=== PATIENT | female | born 1990 | race Caucasian/White ===

== ENCOUNTER 2019-08-22 07:44 | Observation (INO) | payer OTHER ==
[2019-08-22] MEDS ORDERED: Acetaminophen 500 MG Tab PO ONE (08:16)
[2019-08-22] MEDS ORDERED: LORazepam 2 MG/ML SDV IVPUSH ONE (08:32)
--- NOTE | 2019-08-22 08:44 | EDM.PDOC ---
ED HPI GENERAL MEDICAL PROBLEM - General Chief Complaint: Neurological Problem Stated Complaint: SEIZURE Time Seen by Provider: 08/22/19 08:13 Source of Information: Reports: Patient - History of Present Illness INITIAL COMMENTS - FREE TEXT/NARRATIVE: Patient states that she was told she had 2 seizures this morning shortly before her shift at work ended. She does not recall them and is not sure of the duration of either seizure. She remembers being at work and then remembers waking up in the ambulance. She says that she was diagnosed with seizures 2 years ago, and that she stopped taking her medicines a year ago because of the cost. She says she is supposed to take Keppra but does not know the dose. She reports a 5 out of 10 bifrontal headache, which she says she frequently gets after she has a seizure. She denies feeling lightheaded or dizzy. She denies incontinence but says she bit her tongue. She says her sister told her that she also had a seizure for about 2 minutes on (3 days ago). - Related Data Allergies Allergy/AdvReac Type Severity Reaction Status Date / Time Penicillins Allergy Rash Verified 08/22/19 13:08 Home Meds: Home Meds . [No Known Home Meds] 08/22/19 [History] ED ROS GENERAL - Review of Systems Review Of Systems: See Below Constitutional: Denies: Fever, Fatigue HEENT: Denies: Eye Pain Respiratory: Denies: Shortness of Breath GI/Abdominal: Denies: Nausea, Vomiting Neurological: Reports: Dizziness, Headache, Seizure. Denies: Numbness, Syncope , Tingling - Physical Exam Exam: See Below Text/Narrative:: General: alert, well appearing, no acute distress HEENT: Atraumatic, normocephalic, pupils reactive, negative for conjunctival pallor or scleral icterus, mucous membranes moist, throat clear, handling oral secretions well. Patient has a few shallow, 1 to 2 mm diameter abrasions on the left lateral border of her tongue which are consistent with having bitten her tongue; none are actively bleeding. Neck: supple, nontender, trachea midline. Lungs: Clear to auscultation, breath sounds equal bilaterally, chest nontender. Heart: S1S2, regular, negative for clicks, rubs, or JVD. Abdomen: Soft, nondistended, nontender. Negative for masses or hepatosplenomegaly. Skin: warm, dry, good turgor. Musculoskeletal: soft compartments. Extremities: Atraumatic, negative for cords or calf pain. Neurovascular unremarkable. Neuro: Awake, alert, oriented. Cranial nerves II through XII unremarkable. Intact finger to target bilaterally, but I noticed patient has a fine tremor in each upper extremity which neither improves nor worsens as she approaches to target. 2+ DTRs. Sensation intact. Good power in each extremity. Course - Vital Signs Text/Narrative:: Cbc: mild anemia . otherwise unremarkable Cmp: hypokalemia K=2.6 Etoh: Coags: nl Mg: Ucg: neg UA: neg MDM Unclear whether the abnl motor activity reported today was a true sz. I do not find an EEG report which supports a diagnosis of seizure. However, pt's potassium level is low. Pt to be admitted for repletion of potassium. 10:20am Hospitalist paged. Pt sleeping comfortable. No sz like activity. 10:48am Requested page of hospitalist. 10:52am d/w Dr. Blankenship, hospitalist. Will admit. Last Recorded V/S: Last Vital Signs Temp 97.5 F 08/22/19 16:45 Pulse 69 08/22/19 16:45 Resp 18 08/22/19 16:45 BP 105/52 L 08/22/19 16:45 Pulse Ox 95 08/22/19 16:45 - Orders/Labs/Meds Orders: Medication Orders Acetaminophen (Tylenol) 650 mg PO Q4H PRN PRN Reason: Pain (Mild 1-3)/fever Enoxaparin Sodium (Lovenox) 40 mg SUBCUT Q24H ADAM Last Admin: 08/22/19 14:13 Dose: 40 mg Ibuprofen (Motrin) 600 mg PO Q6H PRN PRN Reason: Pain (mild 1-3) Ketorolac Tromethamine (Toradol) 30 mg IV Q6H PRN PRN Reason: Pain (moderate 4-6) Last Admin: 08/22/19 13:52 Dose: 30 mg Levetiracetam (Keppra) 500 mg PO BID [facility] Lorazepam (Ativan) 1 mg IVPUSH Q5M PRN PRN Reason: Seizures Lorazepam (Ativan) 0 mg IVPUSH Q4H PRN; Protocol PRN Reason: Withdrawal Symptoms Multivit/Ca Carb/B Cmplx/FA/Prenat (Renal Caps Softgel) 1 cap PO DAILY ADAM Last Admin: 08/22/19 14:07 Dose: 1 cap Ondansetron HCl (Zofran Odt) 4 mg PO Q4H PRN PRN Reason: nausea, able to take PO Ondansetron HCl (Zofran) 4 mg IVPUSH Q4H PRN PRN Reason: Nausea Polyethylene Glycol (Miralax) 17 gm PO DAILY PRN PRN Reason: Constipation Potassium Chloride (Klor-Con M20) 40 meq PO ONETIME ONE Stop: 08/22/19 20:01 Labs: Laboratory Tests 08/22/19 08/22/19 08/22/19 Range/Units 07:45 07:45 07:45 WBC 8.72 (4.0-11.0) K/uL RBC 3.48 L (4.30-5.90) M/uL Hgb 11.9 L (12.0-16.0) g/dL Hct 35.1 L (36.0-46.0) % MCV 100.9 H (80.0-98.0) fL MCH 34.2 H (27.0-32.0) pg MCHC 33.9 (31.0-37.0) g/dL RDW Std Deviation 52.2 (28.0-62.0) fl RDW Coeff of Neo 14 (11.0-15.0) % Plt Count 256 (150-400) K/uL MPV 10.80 (7.40-12.00) fL Neut % (Auto) 50.6 (48.0-80.0) % Lymph % (Auto) 40.7 H (16.0-40.0) % [place] % (Auto) 7.2 (0.0-15.0) % Eos % (Auto) 1.3 (0.0-7.0) % Baso % (Auto) 0.2 (0.0-1.5) % Neut # (Auto) 4.4 (1.4-5.7) K/uL Lymph # (Auto) 3.6 H (0.6-2.4) K/uL [place] # (Auto) 0.6 (0.0-0.8) K/uL Eos # (Auto) 0.1 (0.0-0.7) K/uL Baso # (Auto) 0.0 (0.0-0.1) K/uL Nucleated RBC % 0.0 /100WBC Nucleated RBCs # 0 K/uL INR 0.99 Sodium 142 (136-145) mmol/L Potassium 2.6 L (3.5-5.1) mmol/L Chloride 103 (98-107) mmol/L Carbon Dioxide 25.8 (21.0-32.0) mmol/L BUN 6 L (7.0-18.0) mg/dL Creatinine 0.7 (0.6-1.0) mg/dL Est Cr Clr Drug Dosing TNP Estimated GFR (MDRD) > 60.0 ml/min Glucose 146 H (74-106) mg/dL Calcium 8.6 (8.5-10.1) mg/dL Magnesium 1.4 L (1.8-2.4) mg/dL Total Bilirubin 1.0 (0.2-1.0) mg/dL AST 80 H (15-37) IU/L ALT 107 H (14-63) IU/L Alkaline Phosphatase 90 (46-116) U/L Total Protein 6.4 (6.4-8.2) g/dL Albumin 3.3 L (3.4-5.0) g/dL Globulin 3.1 (2.6-4.0) g/dL Albumin/Globulin Ratio 1.1 (0.9-1.6) Prolactin ng/mL Urine Color Urine Appearance Urine pH (5.0-8.0) Ur Specific [place] (1.001-1.035) Urine Protein (NEGATIVE) mg/dL Urine Glucose (UA) (NEGATIVE) mg/dL Urine Ketones (NEGATIVE) mg/dL Urine Occult Blood (NEGATIVE) Urine Nitrite (NEGATIVE) Urine Bilirubin (NEGATIVE) Urine Urobilinogen (<2.0) EU/dL Ur Leukocyte Esterase (NEGATIVE) Urine HCG, Qual (NEGATIVE) Urine Opiates Screen (NEGATIVE) Ur Oxycodone Screen (NEGATIVE) Urine Methadone Screen (NEGATIVE) Ur Barbiturates Screen (NEGATIVE) Ur Phencyclidine Scrn (NEGATIVE) Ur Amphetamine Screen (NEGATIVE) U Methamphetamines Scrn (NEGATIVE) U Benzodiazepines Scrn (NEGATIVE) U Cocaine Metab Screen (NEGATIVE) U Marijuana (THC) Screen (NEGATIVE) Ethyl Alcohol < 3.0 mg/dL 08/22/19 08/22/19 08/22/19 Range/Units 07:45 08:42 08:42 WBC (4.0-11.0) K/uL RBC (4.30-5.90) M/uL Hgb (12.0-16.0) g/dL Hct (36.0-46.0) % MCV (80.0-98.0) fL MCH (27.0-32.0) pg MCHC (31.0-37.0) g/dL RDW Std Deviation (28.0-62.0) fl RDW Coeff of Neo (11.0-15.0) % Plt Count (150-400) K/uL MPV (7.40-12.00) fL Neut % (Auto) (48.0-80.0) % Lymph % (Auto) (16.0-40.0) % [place] % (Auto) (0.0-15.0) % Eos % (Auto) (0.0-7.0) % Baso % (Auto) (0.0-1.5) % Neut # (Auto) (1.4-5.7) K/uL Lymph # (Auto) (0.6-2.4) K/uL [place] # (Auto) (0.0-0.8) K/uL Eos # (Auto) (0.0-0.7) K/uL Baso # (Auto) (0.0-0.1) K/uL Nucleated RBC % /100WBC Nucleated RBCs # K/uL INR Sodium (136-145) mmol/L Potassium (3.5-5.1) mmol/L Chloride (98-107) mmol/L Carbon Dioxide (21.0-32.0) mmol/L BUN (7.0-18.0) mg/dL Creatinine (0.6-1.0) mg/dL Est Cr Clr Drug Dosing Estimated GFR (MDRD) ml/min Glucose (74-106) mg/dL Calcium (8.5-10.1) mg/dL Magnesium (1.8-2.4) mg/dL Total Bilirubin (0.2-1.0) mg/dL AST (15-37) IU/L ALT (14-63) IU/L Alkaline Phosphatase (46-116) U/L Total Protein (6.4-8.2) g/dL Albumin (3.4-5.0) g/dL Globulin (2.6-4.0) g/dL Albumin/Globulin Ratio (0.9-1.6) Prolactin 52.1 ng/mL Urine Color YELLOW Urine Appearance CLEAR Urine pH 7.0 (5.0-8.0) Ur Specific [place] <= 1.005 (1.001-1.035) Urine Protein NEGATIVE (NEGATIVE) mg/dL Urine Glucose (UA) NEGATIVE (NEGATIVE) mg/dL Urine Ketones NEGATIVE (NEGATIVE) mg/dL Urine Occult Blood NEGATIVE (NEGATIVE) Urine Nitrite NEGATIVE (NEGATIVE) Urine Bilirubin NEGATIVE (NEGATIVE) Urine Urobilinogen 0.2 (<2.0) EU/dL Ur Leukocyte Esterase NEGATIVE (NEGATIVE) Urine HCG, Qual NEGATIVE (NEGATIVE) Urine Opiates Screen (NEGATIVE) Ur Oxycodone Screen (NEGATIVE) Urine Methadone Screen (NEGATIVE) Ur Barbiturates Screen (NEGATIVE) Ur Phencyclidine Scrn (NEGATIVE) Ur Amphetamine Screen (NEGATIVE) U Methamphetamines Scrn (NEGATIVE) U Benzodiazepines Scrn (NEGATIVE) U Cocaine Metab Screen (NEGATIVE) U Marijuana (THC) Screen (NEGATIVE) Ethyl Alcohol mg/dL 08/22/19 Range/Units 08:42 WBC (4.0-11.0) K/uL RBC (4.30-5.90) M/uL Hgb (12.0-16.0) g/dL Hct (36.0-46.0) % MCV (80.0-98.0) fL MCH (27.0-32.0) pg MCHC (31.0-37.0) g/dL RDW Std Deviation (28.0-62.0) fl RDW Coeff of Neo (11.0-15.0) % Plt Count (150-400) K/uL MPV (7.40-12.00) fL Neut % (Auto) (48.0-80.0) % Lymph % (Auto) (16.0-40.0) % [place] % (Auto) (0.0-15.0) % Eos % (Auto) (0.0-7.0) % Baso % (Auto) (0.0-1.5) % Neut # (Auto) (1.4-5.7) K/uL Lymph # (Auto) (0.6-2.4) K/uL [place] # (Auto) (0.0-0.8) K/uL Eos # (Auto) (0.0-0.7) K/uL Baso # (Auto) (0.0-0.1) K/uL Nucleated RBC % /100WBC Nucleated RBCs # K/uL INR Sodium (136-145) mmol/L Potassium (3.5-5.1) mmol/L Chloride (98-107) mmol/L Carbon Dioxide (21.0-32.0) mmol/L BUN (7.0-18.0) mg/dL Creatinine (0.6-1.0) mg/dL Est Cr Clr Drug Dosing Estimated GFR (MDRD) ml/min Glucose (74-106) mg/dL Calcium (8.5-10.1) mg/dL Magnesium (1.8-2.4) mg/dL Total Bilirubin (0.2-1.0) mg/dL AST (15-37) IU/L ALT (14-63) IU/L Alkaline Phosphatase (46-116) U/L Total Protein (6.4-8.2) g/dL Albumin (3.4-5.0) g/dL Globulin (2.6-4.0) g/dL Albumin/Globulin Ratio (0.9-1.6) Prolactin ng/mL Urine Color Urine Appearance Urine pH (5.0-8.0) Ur Specific [place] (1.001-1.035) Urine Protein (NEGATIVE) mg/dL Urine Glucose (UA) (NEGATIVE) mg/dL Urine Ketones (NEGATIVE) mg/dL Urine Occult Blood (NEGATIVE) Urine Nitrite (NEGATIVE) Urine Bilirubin (NEGATIVE) Urine Urobilinogen (<2.0) EU/dL Ur Leukocyte Esterase (NEGATIVE) Urine HCG, Qual (NEGATIVE) Urine Opiates Screen NEGATIVE (NEGATIVE) Ur Oxycodone Screen NEGATIVE (NEGATIVE) Urine Methadone Screen NEGATIVE (NEGATIVE) Ur Barbiturates Screen NEGATIVE (NEGATIVE) Ur Phencyclidine Scrn NEGATIVE (NEGATIVE) Ur Amphetamine Screen NEGATIVE (NEGATIVE) U Methamphetamines Scrn NEGATIVE (NEGATIVE) U Benzodiazepines Scrn NEGATIVE (NEGATIVE) U Cocaine Metab Screen NEGATIVE (NEGATIVE) U Marijuana (THC) Screen POSITIVE (NEGATIVE) Ethyl Alcohol mg/dL Meds: Medications Generic Name Dose Route Start Last Admin Trade Name Freq PRN Reason Stop Dose Admin Acetaminophen 650 mg 08/22/19 11:28 Tylenol PO Q4H PRN Pain (Mild 1-3)/fever Enoxaparin Sodium 40 mg 08/22/19 11:30 08/22/19 14:13 Lovenox SUBCUT 40 mg Q24H ADAM Administration Ibuprofen 600 mg 08/22/19 11:28 Motrin PO Q6H PRN Pain (mild 1-3) Ketorolac Tromethamine 30 mg 08/22/19 11:28 08/22/19 13:52 Toradol IV 30 mg Q6H PRN Administration Pain (moderate 4-6) Levetiracetam 500 mg 08/23/19 09:00 Keppra PO BID ADAM Lorazepam 1 mg 08/22/19 11:32 Ativan IVPUSH Q5M PRN Seizures Lorazepam 0 mg 08/22/19 11:36 Ativan IVPUSH Q4H PRN Withdrawal Symptoms Protocol Multivit/Ca Carb/B Cmplx/FA/Prenat 1 cap 08/22/19 11:45 08/22/19 14:07 Renal Caps Softgel PO 1 cap DAILY ADAM Administration Ondansetron HCl 4 mg 08/22/19 11:28 Zofran Odt PO Q4H PRN nausea, able to take PO Ondansetron HCl 4 mg 08/22/19 11:28 Zofran IVPUSH Q4H PRN Nausea Polyethylene Glycol 17 gm 08/22/19 11:28 Miralax PO DAILY PRN Constipation Potassium Chloride 40 meq 08/22/19 20:00 Klor-Con M20 PO 08/22/19 20:01 ONETIME ONE Discontinued Medications Generic Name Dose Route Start Last Admin Trade Name Freq PRN Reason Stop Dose Admin Acetaminophen 1,000 mg 08/22/19 08:16 08/22/19 08:24 Tylenol Extra Strength PO 08/22/19 08:17 1,000 mg ONETIME ONE Administration Potassium Chloride 20 meq/ 50 mls @ 25 mls/hr 08/22/19 10:21 08/22/19 11:48 Premix IV 08/22/19 12:20 25 mls/hr ONETIME ONE Administration Levetiracetam 500 mg/ Dextrose 105 mls @ 420 mls/hr 08/22/19 11:45 08/22/19 11:48 /Water IV 08/22/19 11:59 420 mls/hr ONETIME ONE Administration Magnesium Sulfate 2 gm/ Premix 50 mls @ 50 mls/hr 08/22/19 13:29 08/22/19 14: 08 IV 08/22/19 14:28 50 mls/hr ONETIME ONE Administration Lorazepam 1 mg 08/22/19 08:32 08/22/19 08:44 Ativan IVPUSH 08/22/19 08:33 1 mg ONETIME ONE Administration Potassium Chloride 20 meq 08/22/19 13:30 08/22/19 14:07 Klor-Con M20 PO 08/22/19 13:31 20 meq ONETIME ONE Administration Potassium Chloride 40 meq 08/22/19 17:00 Klor-Con M20 PO 08/22/19 17:01 ONETIME ONE Potassium Chloride 20 meq 08/22/19 14:30 08/22/19 14:47 Klor-Con M20 PO 08/22/19 14:31 20 meq ONETIME ONE Administration Departure - Departure Time of Disposition: 10:52 Disposition: Refer to Observation Clinical Impression: Hypokalemia - Discharge Information Sepsis Event Note - Evaluation Sepsis Screening Result: No Definite Risk - Focused Exam Vital Signs: Vital Signs Temp Pulse Resp BP Pulse Ox 08/22/19 10:42 95 111/57 L 95 08/22/19 09:30 90 116/62 08/22/19 07:46 97.3 F 102 H 22 H 130/83 98 Date Exam was Performed: 08/22/19 Time Exam was Performed: 18:36
[2019-08-22 08:58] LABS: BLOOD UREA NITROGEN,BUN 6 mg/dL (7.0-18.0); CARBON DIOXIDE,CO2 25.8 mmol/L (21.0-32.0); CHLORIDE,CL 103 mmol/L (98-107); GLUCOSE RANDOM 146 mg/dL (74-106); POTASSIUM,K 2.6 mmol/L (3.5-5.1); SODIUM,NA 142 mmol/L (136-145)
[2019-08-22] MEDS ORDERED: Potassium Chloride 10% 20 MEQ/15 ML Soln 15 ML UD Cup PO ONE (10:20)
[2019-08-22] MEDS ORDERED: Potassium Chloride Riders 20 MEQ in Premix Bag 1 BAG IV ONE (10:21)
[2019-08-22] MEDS ORDERED: Polyethylene Glycol 3350 Powder 17 GM Packet PO PRN (11:28)
[2019-08-22] MEDS ORDERED: Acetaminophen 325 MG Tab PO PRN (11:28)
[2019-08-22] MEDS ORDERED: Ondansetron 4 MG/2 ML SDV IVPUSH PRN (11:28)
[2019-08-22] MEDS ORDERED: Ondansetron 4 MG Tab.DIS PO PRN (11:28)
[2019-08-22] MEDS ORDERED: Ibuprofen 600 MG Tab PO PRN (11:28)
[2019-08-22] MEDS ORDERED: Enoxaparin 40 MG/0.4 ML Syringe SUBCUT SCH (11:30)
[2019-08-22] MEDS ORDERED: LORazepam 2 MG/ML SDV IVPUSH PRN ×2 (11:32→11:36)
--- NOTE | 2019-08-22 11:46 | PCM.HP.2 ---
H&P History of Present Illness - General Date of Service: 08/22/19 Admit Problem/Dx: Admission Diagnosis/Problem Admission Diagnosis/Problem Hypokalemia - History of Present Illness Initial Comments - Free Text/Narative: 29 y/o female who presented to the ER after having a seizure. Patient states she does not recall from time of seizure. States she woke up in the ambulance. Denies any headache, chest pain, dyspnea, abdominal pain. She has a history of seizures for the past 2 years. However, she has not bee using medication for it. Patient had another seizure few days ago on . Patient denies alcohol use but mom thinks she is an alcoholic. In the ER, she was found to be hypokalemic. She was admitted for hypokalemia. - Related Data Allergies/Adverse Reactions: Allergies Allergy/AdvReac Type Severity Reaction Status Date / Time Penicillins Allergy Rash Verified 08/22/19 13:08 Home Medications: Home Meds . [No Known Home Meds] 08/22/19 [History] Past Medical History Neurological History: Reports: Seizure - Infectious Disease History Infectious Disease History: Reports: MRSA Social & Family History - Tobacco Use Smoking Status *Q: Current Every Day Smoker Years of Tobacco use: 16 Packs/Tins Daily: 1 - Recreational Drug Use Recreational Drug Use: No H&P Review of Systems - Review of Systems: Review Of Systems: Comprehensive ROS is negative, except as noted in HPI. Exam - Exam Exam: See Below - Vital Signs Vital Signs: Last Vital Signs Temp 36.3 C 08/22/19 07:46 Pulse 95 08/22/19 10:42 Resp 22 H 08/22/19 07:46 BP 111/57 L 08/22/19 10:42 Pulse Ox 95 08/22/19 10:42 Weight: 68.946 kg - Exam General: Alert, Oriented, Cooperative HEENT: Pupils Equal, Pupils Reactive Neck: Supple Lungs: Clear to Auscultation, Normal Respiratory Effort, Wheezing. No: Crackles Cardiovascular: Regular Rate, Regular Rhythm GI/Abdominal Exam: Normal Bowel Sounds, Soft, Non-Tender Extremities: Normal Inspection, No Pedal Edema Skin: Warm, Dry Neurological: Cranial Nerves Intact Neuro Extensive - Mental Status: Alert, Oriented x3 - Patient Data Lab Results Last 24 hrs: Laboratory Results - last 24 hr 02/08/22/19 08/22/19 Range/Units 07:45 07:45 07:45 WBC 8.72 (4.0-11.0) K/uL RBC 3.48 L (4.30-5.90) M/uL Hgb 11.9 L (12.0-16.0) g/dL Hct 35.1 L (36.0-46.0) % MCV 100.9 H (80.0-98.0) fL MCH 34.2 H (27.0-32.0) pg MCHC 33.9 (31.0-37.0) g/dL RDW Std Deviation 52.2 (28.0-62.0) fl RDW Coeff of Neo 14 (11.0-15.0) % Plt Count 256 (150-400) K/uL MPV 10.80 (7.40-12.00) fL Neut % (Auto) 50.6 (48.0-80.0) % Lymph % (Auto) 40.7 H (16.0-40.0) % [place] % (Auto) 7.2 (0.0-15.0) % Eos % (Auto) 1.3 (0.0-7.0) % Baso % (Auto) 0.2 (0.0-1.5) % Neut # (Auto) 4.4 (1.4-5.7) K/uL Lymph # (Auto) 3.6 H (0.6-2.4) K/uL [place] # (Auto) 0.6 (0.0-0.8) K/uL Eos # (Auto) 0.1 (0.0-0.7) K/uL Baso # (Auto) 0.0 (0.0-0.1) K/uL Nucleated RBC % 0.0 /100WBC Nucleated RBCs # 0 K/uL INR 0.99 Sodium 142 (136-145) mmol/L Potassium 2.6 L (3.5-5.1) mmol/L Chloride 103 (98-107) mmol/L Carbon Dioxide 25.8 (21.0-32.0) mmol/L BUN 6 L (7.0-18.0) mg/dL Creatinine 0.7 (0.6-1.0) mg/dL Est Cr Clr Drug Dosing TNP Estimated GFR (MDRD) > 60.0 ml/min Glucose 146 H (74-106) mg/dL Calcium 8.6 (8.5-10.1) mg/dL Magnesium 1.4 L (1.8-2.4) mg/dL Total Bilirubin 1.0 (0.2-1.0) mg/dL AST 80 H (15-37) IU/L ALT 107 H (14-63) IU/L Alkaline Phosphatase 90 (46-116) U/L Total Protein 6.4 (6.4-8.2) g/dL Albumin 3.3 L (3.4-5.0) g/dL Globulin 3.1 (2.6-4.0) g/dL Albumin/Globulin Ratio 1.1 (0.9-1.6) Urine Color Urine Appearance Urine pH (5.0-8.0) Ur Specific [place] (1.001-1.035) Urine Protein (NEGATIVE) mg/dL Urine Glucose (UA) (NEGATIVE) mg/dL Urine Ketones (NEGATIVE) mg/dL Urine Occult Blood (NEGATIVE) Urine Nitrite (NEGATIVE) Urine Bilirubin (NEGATIVE) Urine Urobilinogen (<2.0) EU/dL Ur Leukocyte Esterase (NEGATIVE) Urine HCG, Qual (NEGATIVE) Ethyl Alcohol < 3.0 mg/dL 08/22/19 08/22/19 Range/Units 08:42 08:42 WBC (4.0-11.0) K/uL RBC (4.30-5.90) M/uL Hgb (12.0-16.0) g/dL Hct (36.0-46.0) % MCV (80.0-98.0) fL MCH (27.0-32.0) pg MCHC (31.0-37.0) g/dL RDW Std Deviation (28.0-62.0) fl RDW Coeff of Neo (11.0-15.0) % Plt Count (150-400) K/uL MPV (7.40-12.00) fL Neut % (Auto) (48.0-80.0) % Lymph % (Auto) (16.0-40.0) % [place] % (Auto) (0.0-15.0) % Eos % (Auto) (0.0-7.0) % Baso % (Auto) (0.0-1.5) % Neut # (Auto) (1.4-5.7) K/uL Lymph # (Auto) (0.6-2.4) K/uL [place] # (Auto) (0.0-0.8) K/uL Eos # (Auto) (0.0-0.7) K/uL Baso # (Auto) (0.0-0.1) K/uL Nucleated RBC % /100WBC Nucleated RBCs # K/uL INR Sodium (136-145) mmol/L Potassium (3.5-5.1) mmol/L Chloride (98-107) mmol/L Carbon Dioxide (21.0-32.0) mmol/L BUN (7.0-18.0) mg/dL Creatinine (0.6-1.0) mg/dL Est Cr Clr Drug Dosing Estimated GFR (MDRD) ml/min Glucose (74-106) mg/dL Calcium (8.5-10.1) mg/dL Magnesium (1.8-2.4) mg/dL Total Bilirubin (0.2-1.0) mg/dL AST (15-37) IU/L ALT (14-63) IU/L Alkaline Phosphatase (46-116) U/L Total Protein (6.4-8.2) g/dL Albumin (3.4-5.0) g/dL Globulin (2.6-4.0) g/dL Albumin/Globulin Ratio (0.9-1.6) Urine Color YELLOW Urine Appearance CLEAR Urine pH 7.0 (5.0-8.0) Ur Specific [place] <= 1.005 (1.001-1.035) Urine Protein NEGATIVE (NEGATIVE) mg/dL Urine Glucose (UA) NEGATIVE (NEGATIVE) mg/dL Urine Ketones NEGATIVE (NEGATIVE) mg/dL Urine Occult Blood NEGATIVE (NEGATIVE) Urine Nitrite NEGATIVE (NEGATIVE) Urine Bilirubin NEGATIVE (NEGATIVE) Urine Urobilinogen 0.2 (<2.0) EU/dL Ur Leukocyte Esterase NEGATIVE (NEGATIVE) Urine HCG, Qual NEGATIVE (NEGATIVE) Ethyl Alcohol mg/dL Result Diagrams: 08/22/19 07:45 08/22/19 07:45 Sepsis Event Note - Evaluation Sepsis Screening Result: No Definite Risk - Focused Exam Vital Signs: Vital Signs Temp Pulse Resp BP Pulse Ox 08/22/19 10:42 95 111/57 L 95 08/22/19 07:46 36.3 C 102 H 22 H 130/83 98 Date Exam was Performed: 08/22/19 Time Exam was Performed: 14:28 Problem List Initiated/Reviewed/Updated: Yes Orders Last 24hrs: Active Orders 24 hr Category Date Time Status Admission Status [Patient Status] [ADT] Stat ADT 08/22/19 10:58 Active CIWAA Assessment [RC] Q6H Care 08/22/19 11:36 Active EKG 12 Lead [EKG Documentation Completion] [RC] STAT Care 08/22/19 10:20 Active Intake and Output [RC] QSHIFT Care 08/22/19 11:28 Active Oxygen Therapy [RC] PRN Care 08/22/19 11:28 Active Telemetry Monitoring [Cardiac Monitoring] [RC] . Care 08/22/19 11:30 Active DIRECTED Up With Assistance [RC] ASDIRECTED Care 08/22/19 11:28 Active VTE/DVT Education [RC] PER UNIT ROUTINE Care 08/22/19 11:28 Active Vital Signs [RC] Q4H Care 08/22/19 11:28 Active Regular Diet [DIET] Diet 08/22/19 Lunch Active CBC WITH AUTO DIFF [HEME] AM Lab 08/23/19 05:11 Ordered CBC WITH AUTO DIFF [HEME] AM Lab 08/24/19 05:11 Ordered COMPREHENSIVE METABOLIC PN,CMP [CHEM] AM Lab 08/23/19 05:11 Ordered COMPREHENSIVE METABOLIC PN,CMP [CHEM] AM Lab 08/24/19 05:11 Ordered DRUG SCREEN, URINE [URCHEM] Routine Lab 08/22/19 08:42 Received MAGNESIUM [CHEM] AM Lab 08/23/19 05:11 Ordered PROLACTIN [CHEM] Routine Lab 08/22/19 11:34 Ordered Acetaminophen [Tylenol] Med 08/22/19 11:28 Active 650 mg PO Q4H PRN Enoxaparin [Lovenox] Med 08/22/19 11:30 Active 40 mg SUBCUT Q24H Folic Acid/Vitamin B Comp W-C [Renal Caps Softgel] Med 08/22/19 11:45 Active 1 cap PO DAILY Ibuprofen [Motrin] Med 08/22/19 11:28 Active 600 mg PO Q6H PRN Ketorolac [Toradol] Med 08/22/19 11:28 Active 30 mg IV Q6H PRN LORazepam [Ativan] Med 08/22/19 11:32 Active 1 mg IVPUSH Q5M PRN LORazepam [Ativan] Med 08/22/19 11:36 Active See Protocol IVPUSH Q4H PRN Ondansetron [Zofran ODT] Med 08/22/19 11:28 Active 4 mg PO Q4H PRN Ondansetron [Zofran] Med 08/22/19 11:28 Active 4 mg IVPUSH Q4H PRN Potassium Chloride Riders [KCL 20 MEQ in Water 50 ML] Med 08/22/19 10:21 Active 20 meq Premix Bag 1 bag IV ONETIME levETIRAcetam [Keppra] Med 08/23/19 09:00 Active 500 mg PO BID levETIRAcetam [Keppra] 500 mg Med 08/22/19 11:45 Active Dextrose 5% in Water 100 ml IV ONETIME polyethylene glycoL 3350 [MiraLAX] Med 08/22/19 11:28 Active 17 gm PO DAILY PRN Seizure Precautions [OM.PC] Stat Oth 08/22/19 11:30 Ordered Resuscitation Status Routine Resus Stat 08/22/19 11:28 Ordered Medication Orders Acetaminophen (Tylenol) 650 mg PO Q4H PRN PRN Reason: Pain (Mild 1-3)/fever Enoxaparin Sodium (Lovenox) 40 mg SUBCUT Q24H ADAM Potassium Chloride 20 meq/ (Premix) 50 mls @ 25 mls/hr IV ONETIME ONE Stop: 08/22/19 12:20 Levetiracetam 500 mg/ Dextrose (/Water) 105 mls @ 420 mls/hr IV ONETIME ONE Stop: 08/22/19 11:59 Ibuprofen (Motrin) 600 mg PO Q6H PRN PRN Reason: Pain (mild 1-3) Ketorolac Tromethamine (Toradol) 30 mg IV Q6H PRN PRN Reason: Pain (moderate 4-6) Levetiracetam (Keppra) 500 mg PO BID ADAM Lorazepam (Ativan) 1 mg IVPUSH Q5M PRN PRN Reason: Seizures Lorazepam (Ativan) 0 mg IVPUSH Q4H PRN; Protocol PRN Reason: Withdrawal Symptoms Multivit/Ca Carb/B Cmplx/FA/Prenat (Renal Caps Softgel) 1 cap PO DAILY ADAM Ondansetron HCl (Zofran Odt) 4 mg PO Q4H PRN PRN Reason: nausea, able to take PO Ondansetron HCl (Zofran) 4 mg IVPUSH Q4H PRN PRN Reason: Nausea Polyethylene Glycol (Miralax) 17 gm PO DAILY PRN PRN Reason: Constipation Assessment/Plan Comment:: A: 1. Epilepsy 2. Hypokalemia 3. Hypomagnesemia P: 1. Will continue with Keppra 500 mg PO BID for now. Will replace hypokalemia with KCl 40 mEq x2 doses. Seizure precautions. CIWA assessment and Ativan PRN for alcohol withdrawal, seizures. Replace hypomagnesemia with MgS 2 g IV once. Recheck tomorrow. dispo: likely dc tomorrow
[2019-08-22] MEDS ORDERED: Magnesium Sulfate/Water 2 GM in Premix Bag 1 BAG IV ONE (13:29)
[2019-08-22] MEDS ORDERED: Potassium Chloride 20 MEQ Tab.ER PO ONE ×4 (13:30→20:00)
[2019-08-22] MEDS: Ketorolac 30 MG/ML SDV IV PRN ×2 (13:52→21:19)
[2019-08-22] MEDS: Folic Acid/Vitamin B Complex With C Cap PO SCH (14:07)
[2019-08-22] MEDS ORDERED: Potassium Chloride 20 MEQ Tab.ER ONE (21:30)
[2019-08-22 21:31] LABS: BLOOD UREA NITROGEN,BUN 4 mg/dL (7.0-18.0); CARBON DIOXIDE,CO2 28.1 mmol/L (21.0-32.0); CHLORIDE,CL 108 mmol/L (98-107); GLUCOSE RANDOM 110 mg/dL (74-106); POTASSIUM,K 3.4 mmol/L (3.5-5.1); SODIUM,NA 145 mmol/L (136-145)
[2019-08-23] MEDS: Ketorolac 30 MG/ML SDV IV PRN ×2 (03:24→10:04)
[2019-08-23 06:29] LABS: HEMOGLOBIN A1C 5.4 % (4.5-6.2)
[2019-08-23 06:41] LABS: BLOOD UREA NITROGEN,BUN 5 mg/dL (7.0-18.0); CHLORIDE,CL 109 mmol/L (98-107); GLUCOSE RANDOM 91 mg/dL (74-106); POTASSIUM,K 3.8 mmol/L (3.5-5.1); SODIUM,NA 144 mmol/L (136-145)
[2019-08-23] MEDS ORDERED: Potassium Chloride 20 MEQ Tab.ER PO ONE (08:29)
[2019-08-23] MEDS: Folic Acid/Vitamin B Complex With C Cap PO SCH (08:56)
[2019-08-23] MEDS ORDERED: levETIRAcetam 500 MG Tab PO SCH (09:00)
--- NOTE | 2019-08-23 11:44 | PCM.DCSUM1 ---
<Ilia Aguila - Last Filed: 08/23/19 14:41> Discharge Summary - Hospital Course Free Text/Narrative:: 29 y/o female with history of epilepsy who presented to the ER after having a seizure at work. Found to be hypokalemic. Admitted for hypokalemia. Started on Keppra 500 mg PO BID. In addition, electrolytes were replaced. Started on CIWA assessments due to her history of drinking. CIWA scores 0. She did fairly well during this hospitalization. She was discharged home with instructions to follow -up with her PCP in 1-2 weeks and prescribed Keppra 500 mg PO BID. - Discharge Data Discharge Date: 08/23/19 Discharge Disposition: Home, Self-Care 01 Condition: Good - Referral to Home Health Primary Care Physician: Alexis Crisostomo MD - Patient Instructions Diet: Regular Diet as Tolerated, No Alcoholic Beverages Activity: As Tolerated Notify Provider of: Fever, Increased Pain, Swelling and Redness, Nausea and/or Vomiting Other/Special Instructions: Please, abstain from alcohol and any mood altering substances. - Discharge Plan *PRESCRIPTION DRUG MONITORING PROGRAM REVIEWED*: Not Applicable *COPY OF PRESCRIPTION DRUG MONITORING REPORT IN PATIENT BRUNO: Not Applicable Prescriptions/Med Rec: levETIRAcetam [Keppra] 500 mg PO BID 30 Days #60 tablet Home Medications: Home Meds levETIRAcetam [Keppra] 500 mg PO BID 30 Days #60 tablet 08/23/19 [Rx] Patient Handouts: Levetiracetam tablets, Seizure, Adult, [id number] Referrals: [facility] [Outside] Alexis Crisostomo MD [Primary Care Provider] - 09/01/19 2:45 pm - Discharge Summary/Plan Comment DC Time >30 min.: No - Patient Data Vitals - Most Recent: Last Vital Signs Temp 37.1 C 08/23/19 08:07 Pulse 80 08/23/19 08:07 Resp 16 08/23/19 08:07 BP 111/59 L 08/23/19 08:07 Pulse Ox 97 08/23/19 08:07 Weight - Most Recent: 68.946 kg I&O - Last 24 hours: Intake & Output 08/22/19 08/23/19 08/23/19 22:59 06:59 14:59 Intake Total 500 500 Output Total 420 850 Balance 80 -350 Lab Results - Last 24 hrs: Laboratory Results - last 24 hr 08/22/19 08/22/19 08/22/19 Range/Units 07:45 08:42 21:07 WBC (4.0-11.0) K/uL RBC (4.30-5.90) M/uL Hgb (12.0-16.0) g/dL Hct (36.0-46.0) % MCV (80.0-98.0) fL MCH (27.0-32.0) pg MCHC (31.0-37.0) g/dL RDW Std Deviation (28.0-62.0) fl RDW Coeff of Neo (11.0-15.0) % Plt Count (150-400) K/uL MPV (7.40-12.00) fL Neut % (Auto) (48.0-80.0) % Lymph % (Auto) (16.0-40.0) % Patrick % (Auto) (0.0-15.0) % Eos % (Auto) (0.0-7.0) % Baso % (Auto) (0.0-1.5) % Neut # (Auto) (1.4-5.7) K/uL Lymph # (Auto) (0.6-2.4) K/uL Patrick # (Auto) (0.0-0.8) K/uL Eos # (Auto) (0.0-0.7) K/uL Baso # (Auto) (0.0-0.1) K/uL Sodium 145 (136-145) mmol/L Potassium 3.4 L (3.5-5.1) mmol/L Chloride 108 H (98-107) mmol/L Carbon Dioxide 28.1 (21.0-32.0) mmol/L BUN 4 L (7.0-18.0) mg/dL Creatinine 0.7 (0.6-1.0) mg/dL Est Cr Clr Drug Dosing 106.70 mL/min Estimated GFR (MDRD) > 60.0 ml/min Glucose 110 H (74-106) mg/dL Hemoglobin A1c (4.5-6.2) % Calcium 8.5 (8.5-10.1) mg/dL Magnesium (1.8-2.4) mg/dL Iron (50-175) ug/dL TIBC (250-450) ug/dL % Saturation (20-55) % Ferritin (8-252) ng/mL Total Bilirubin (0.2-1.0) mg/dL AST (15-37) IU/L ALT (14-63) IU/L Alkaline Phosphatase (46-116) U/L Total Protein (6.4-8.2) g/dL Albumin (3.4-5.0) g/dL Globulin (2.6-4.0) g/dL Albumin/Globulin Ratio (0.9-1.6) Vitamin B12 (193-986) pg/mL Folate (8.60-58.90) ng/mL Prolactin 52.1 ng/mL Urine Opiates Screen NEGATIVE (NEGATIVE) Ur Oxycodone Screen NEGATIVE (NEGATIVE) Urine Methadone Screen NEGATIVE (NEGATIVE) Ur Barbiturates Screen NEGATIVE (NEGATIVE) Ur Phencyclidine Scrn NEGATIVE (NEGATIVE) Ur Amphetamine Screen NEGATIVE (NEGATIVE) U Methamphetamines Scrn NEGATIVE (NEGATIVE) U Benzodiazepines Scrn NEGATIVE (NEGATIVE) U Cocaine Metab Screen NEGATIVE (NEGATIVE) U Marijuana (THC) Screen POSITIVE (NEGATIVE) 08/23/19 08/23/19 08/23/19 Range/Units 05:25 05:25 05:25 WBC 7.26 (4.0-11.0) K/uL RBC 3.20 L (4.30-5.90) M/uL Hgb 11.4 L (12.0-16.0) g/dL Hct 32.2 L (36.0-46.0) % MCV 100.6 H (80.0-98.0) fL MCH 35.6 H (27.0-32.0) pg MCHC 35.4 (31.0-37.0) g/dL RDW Std Deviation 48.1 (28.0-62.0) fl RDW Coeff of Neo 14 (11.0-15.0) % Plt Count 259 (150-400) K/uL MPV 10.40 (7.40-12.00) fL Neut % (Auto) 49.5 (48.0-80.0) % Lymph % (Auto) 37.9 (16.0-40.0) % Patrick % (Auto) 10.6 (0.0-15.0) % Eos % (Auto) 1.7 (0.0-7.0) % Baso % (Auto) 0.3 (0.0-1.5) % Neut # (Auto) 3.6 (1.4-5.7) K/uL Lymph # (Auto) 2.8 H (0.6-2.4) K/uL Patrick # (Auto) 0.8 (0.0-0.8) K/uL Eos # (Auto) 0.1 (0.0-0.7) K/uL Baso # (Auto) 0.0 (0.0-0.1) K/uL Sodium 144 (136-145) mmol/L Potassium 3.8 (3.5-5.1) mmol/L Chloride 109 H (98-107) mmol/L Carbon Dioxide 28.0 (21.0-32.0) mmol/L BUN 5 L (7.0-18.0) mg/dL Creatinine 0.6 (0.6-1.0) mg/dL Est Cr Clr Drug Dosing 124.49 mL/min Estimated GFR (MDRD) > 60.0 ml/min Glucose 91 (74-106) mg/dL Hemoglobin A1c (4.5-6.2) % Calcium 8.2 L (8.5-10.1) mg/dL Magnesium 2.0 (1.8-2.4) mg/dL Iron 56 (50-175) ug/dL TIBC 159 L (250-450) ug/dL % Saturation 35.22 (20-55) % Ferritin 1085 H (8-252) ng/mL Total Bilirubin 0.6 (0.2-1.0) mg/dL AST 55 H (15-37) IU/L ALT 81 H (14-63) IU/L Alkaline Phosphatase 78 (46-116) U/L Total Protein 5.8 L (6.4-8.2) g/dL Albumin 2.7 L (3.4-5.0) g/dL Globulin 3.1 (2.6-4.0) g/dL Albumin/Globulin Ratio 0.9 (0.9-1.6) Vitamin B12 1007 H (193-986) pg/mL Folate 14.60 (8.60-58.90) ng/mL Prolactin ng/mL Urine Opiates Screen (NEGATIVE) Ur Oxycodone Screen (NEGATIVE) Urine Methadone Screen (NEGATIVE) Ur Barbiturates Screen (NEGATIVE) Ur Phencyclidine Scrn (NEGATIVE) Ur Amphetamine Screen (NEGATIVE) U Methamphetamines Scrn (NEGATIVE) U Benzodiazepines Scrn (NEGATIVE) U Cocaine Metab Screen (NEGATIVE) U Marijuana (THC) Screen (NEGATIVE) 08/23/19 Range/Units 05:25 WBC (4.0-11.0) K/uL RBC (4.30-5.90) M/uL Hgb (12.0-16.0) g/dL Hct (36.0-46.0) % MCV (80.0-98.0) fL MCH (27.0-32.0) pg MCHC (31.0-37.0) g/dL RDW Std Deviation (28.0-62.0) fl RDW Coeff of Neo (11.0-15.0) % Plt Count (150-400) K/uL MPV (7.40-12.00) fL Neut % (Auto) (48.0-80.0) % Lymph % (Auto) (16.0-40.0) % Patrick % (Auto) (0.0-15.0) % Eos % (Auto) (0.0-7.0) % Baso % (Auto) (0.0-1.5) % Neut # (Auto) (1.4-5.7) K/uL Lymph # (Auto) (0.6-2.4) K/uL Patrick # (Auto) (0.0-0.8) K/uL Eos # (Auto) (0.0-0.7) K/uL Baso # (Auto) (0.0-0.1) K/uL Sodium (136-145) mmol/L Potassium (3.5-5.1) mmol/L Chloride (98-107) mmol/L Carbon Dioxide (21.0-32.0) mmol/L BUN (7.0-18.0) mg/dL Creatinine (0.6-1.0) mg/dL Est Cr Clr Drug Dosing mL/min Estimated GFR (MDRD) ml/min Glucose (74-106) mg/dL Hemoglobin A1c 5.4 (4.5-6.2) % Calcium (8.5-10.1) mg/dL Magnesium (1.8-2.4) mg/dL Iron (50-175) ug/dL TIBC (250-450) ug/dL % Saturation (20-55) % Ferritin (8-252) ng/mL Total Bilirubin (0.2-1.0) mg/dL AST (15-37) IU/L ALT (14-63) IU/L Alkaline Phosphatase (46-116) U/L Total Protein (6.4-8.2) g/dL Albumin (3.4-5.0) g/dL Globulin (2.6-4.0) g/dL Albumin/Globulin Ratio (0.9-1.6) Vitamin B12 (193-986) pg/mL Folate (8.60-58.90) ng/mL Prolactin ng/mL Urine Opiates Screen (NEGATIVE) Ur Oxycodone Screen (NEGATIVE) Urine Methadone Screen (NEGATIVE) Ur Barbiturates Screen (NEGATIVE) Ur Phencyclidine Scrn (NEGATIVE) Ur Amphetamine Screen (NEGATIVE) U Methamphetamines Scrn (NEGATIVE) U Benzodiazepines Scrn (NEGATIVE) U Cocaine Metab Screen (NEGATIVE) U Marijuana (THC) Screen (NEGATIVE) Med Orders - Current: Current Medications Acetaminophen (Tylenol) 650 mg PO Q4H PRN PRN Reason: Pain (Mild 1-3)/fever Last Admin: 08/22/19 18:36 Dose: 650 mg Enoxaparin Sodium (Lovenox) 40 mg SUBCUT Q24H [facility] Last Admin: 08/22/19 14:13 Dose: 40 mg Ibuprofen (Motrin) 600 mg PO Q6H PRN PRN Reason: Pain (mild 1-3) Ketorolac Tromethamine (Toradol) 30 mg IV Q6H PRN PRN Reason: Pain (moderate 4-6) Last Admin: 08/23/19 10:04 Dose: 30 mg Levetiracetam (Keppra) 500 mg PO BID [facility] Last Admin: 08/23/19 08:56 Dose: 500 mg Lorazepam (Ativan) 1 mg IVPUSH Q5M PRN PRN Reason: Seizures Lorazepam (Ativan) 0 mg IVPUSH Q4H PRN; Protocol PRN Reason: Withdrawal Symptoms Multivit/Ca Carb/B Cmplx/FA/Prenat (Renal Caps Softgel) 1 cap PO DAILY [facility] Last Admin: 08/23/19 08:56 Dose: 1 cap Ondansetron HCl (Zofran Odt) 4 mg PO Q4H PRN PRN Reason: nausea, able to take PO Ondansetron HCl (Zofran) 4 mg IVPUSH Q4H PRN PRN Reason: Nausea Polyethylene Glycol (Miralax) 17 gm PO DAILY PRN PRN Reason: Constipation Discontinued Medications Acetaminophen (Tylenol Extra Strength) 1,000 mg PO ONETIME ONE Stop: 08/22/19 08:17 Last Admin: 08/22/19 08:24 Dose: 1,000 mg Potassium Chloride 20 meq/ (Premix) 50 mls @ 25 mls/hr IV ONETIME ONE Stop: 08/22/19 12:20 Last Admin: 08/22/19 11:48 Dose: 25 mls/hr Levetiracetam 500 mg/ Dextrose (/Water) 105 mls @ 420 mls/hr IV ONETIME ONE Stop: 08/22/19 11:59 Last Admin: 08/22/19 11:48 Dose: 420 mls/hr Magnesium Sulfate 2 gm/ Premix 50 mls @ 50 mls/hr IV ONETIME ONE Stop: 08/22/19 14:28 Last Admin: 08/22/19 14:08 Dose: 50 mls/hr Lorazepam (Ativan) 1 mg IVPUSH ONETIME ONE Stop: 08/22/19 08:33 Last Admin: 08/22/19 08:44 Dose: 1 mg Potassium Chloride (Klor-Con M20) 20 meq PO ONETIME ONE Stop: 08/22/19 13:31 Last Admin: 08/22/19 14:07 Dose: 20 meq Potassium Chloride (Klor-Con M20) 40 meq PO ONETIME ONE Stop: 08/22/19 17:01 Potassium Chloride (Klor-Con M20) 40 meq PO ONETIME ONE Stop: 08/22/19 20:01 Last Admin: 08/22/19 21:19 Dose: 40 meq Potassium Chloride (Klor-Con M20) 20 meq PO ONETIME ONE Stop: 08/22/19 14:31 Last Admin: 08/22/19 14:47 Dose: 20 meq Potassium Chloride (Klor-Con M20) Confirm Administered Dose 20 meq .ROUTE .STK- MED ONE Stop: 08/22/19 21:31 Last Admin: 08/22/19 22:52 Dose: Not Given Potassium Chloride (Klor-Con M20) 40 meq PO ONETIME ONE Stop: 08/23/19 08:30 Last Admin: 08/23/19 08:56 Dose: 40 meq <Zach Blankenship - Last Filed: 08/26/19 10:15> Discharge Summary - Referral to [facility] Primary Care Physician: Alexis Crisostomo MD - Patient Data Vitals - Most Recent: Last Vital Signs Temp 37.1 C 08/23/19 08:07 Pulse 80 08/23/19 08:07 Resp 16 08/23/19 08:07 BP 111/59 L 08/23/19 08:07 Pulse Ox 97 08/23/19 08:07 Med Orders - Current: Current Medications Discontinued Medications Acetaminophen (Tylenol Extra Strength) 1,000 mg PO ONETIME ONE Stop: 08/22/19 08:17 Last Admin: 08/22/19 08:24 Dose: 1,000 mg Acetaminophen (Tylenol) 650 mg PO Q4H PRN PRN Reason: Pain (Mild 1-3)/fever Last Admin: 08/22/19 18:36 Dose: 650 mg Enoxaparin Sodium (Lovenox) 40 mg SUBCUT Q24H [facility] Last Admin: 08/22/19 14:13 Dose: 40 mg Potassium Chloride 20 meq/ (Premix) 50 mls @ 25 mls/hr IV ONETIME ONE Stop: 08/22/19 12:20 Last Admin: 08/22/19 11:48 Dose: 25 mls/hr Levetiracetam 500 mg/ Dextrose (/Water) 105 mls @ 420 mls/hr IV ONETIME ONE Stop: 08/22/19 11:59 Last Admin: 08/22/19 11:48 Dose: 420 mls/hr Magnesium Sulfate 2 gm/ Premix 50 mls @ 50 mls/hr IV ONETIME ONE Stop: 08/22/19 14:28 Last Admin: 08/22/19 14:08 Dose: 50 mls/hr Ibuprofen (Motrin) 600 mg PO Q6H PRN PRN Reason: Pain (mild 1-3) Ketorolac Tromethamine (Toradol) 30 mg IV Q6H PRN PRN Reason: Pain (moderate 4-6) Last Admin: 08/23/19 10:04 Dose: 30 mg Levetiracetam (Keppra) 500 mg PO BID [facility] Last Admin: 08/23/19 08:56 Dose: 500 mg Lorazepam (Ativan) 1 mg IVPUSH ONETIME ONE Stop: 08/22/19 08:33 Last Admin: 08/22/19 08:44 Dose: 1 mg Lorazepam (Ativan) 1 mg IVPUSH Q5M PRN PRN Reason: Seizures Lorazepam (Ativan) 0 mg IVPUSH Q4H PRN; Protocol PRN Reason: Withdrawal Symptoms Multivit/Ca Carb/B Cmplx/FA/Prenat (Renal Caps Softgel) 1 cap PO DAILY [facility] Last Admin: 08/23/19 08:56 Dose: 1 cap Ondansetron HCl (Zofran Odt) 4 mg PO Q4H PRN PRN Reason: nausea, able to take PO Ondansetron HCl (Zofran) 4 mg IVPUSH Q4H PRN PRN Reason: Nausea Polyethylene Glycol (Miralax) 17 gm PO DAILY PRN PRN Reason: Constipation Potassium Chloride (Klor-Con M20) 20 meq PO ONETIME ONE Stop: 08/22/19 13:31 Last Admin: 08/22/19 14:07 Dose: 20 meq Potassium Chloride (Klor-Con M20) 40 meq PO ONETIME ONE Stop: 08/22/19 17:01 Potassium Chloride (Klor-Con M20) 40 meq PO ONETIME ONE Stop: 08/22/19 20:01 Last Admin: 08/22/19 21:19 Dose: 40 meq Potassium Chloride (Klor-Con M20) 20 meq PO ONETIME ONE Stop: 08/22/19 14:31 Last Admin: 08/22/19 14:47 Dose: 20 meq Potassium Chloride (Klor-Con M20) Confirm Administered Dose 20 meq .ROUTE .STK- MED ONE Stop: 08/22/19 21:31 Last Admin: 08/22/19 22:52 Dose: Not Given Potassium Chloride (Klor-Con M20) 40 meq PO ONETIME ONE Stop: 08/23/19 08:30 Last Admin: 08/23/19 08:56 Dose: 40 meq - Free Text/Narrative Note: I have seen and evaluated the patient with the resident. I have discussed the findings and treatment plan with the resident. I agree with the assessment and plan as outlined in the following note.
== END 2019-08-23 12:07 | disposition home or self-care (01) ==
LOC: MW.ED 07:44 → MW.MS 10:58 → UNDOADMOB 11:47
PROVIDERS: ADMIT Internal Medicine; ATTEND Internal Medicine
DX: E87.6 Hypokalemia (principal); G40.909 Epilepsy, unspecified, not intractable, without status epilepticus; E83.42 Hypomagnesemia; F17.210 Nicotine dependence, cigarettes, uncomplicated; Z88.0 Allergy status to penicillin; Z79.899 Other long term (current) drug therapy
CPT/HCPCS: 36415; 80048; 80053; 80305; 80307; 81003; 81025; 82607; 82728; 82746; 83036; 83550; 83735; 84146; 85025; 85610; 96374; 96375; 99285; A9270; J1650; J1885; J1953; J2060; J3475; J3480; J7060; 96365; 99284